=== PATIENT | female | born 1945 | race Caucasian/White ===

== ENCOUNTER 2016-12-07 15:27 | Emergency (ER) | payer OTHER ==
[~2016-12-07] VITALS: Ht 172.7 cm; Wt 84.4 kg
--- NOTE | ~2016-12-07 | EKG ---
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
[2016-12-07] MEDS ORDERED: SIMVASTATIN10 MG PO (15:54)
[2016-12-07] MEDS ORDERED: NEURONTIN600 MG PO (15:55)
[2016-12-07] MEDS ORDERED: PROTONIX40 M1 PO (15:55)
[2016-12-07 15:56] LABS: URINE BILIRUBIN NEGATIVE (Negative); URINE BLOOD 1+ (Negative); URINE COLOR YELLOW; URINE GLUCOSE-RANDOM* NEGATIVE (Negative); URINE KETONES TRACE (Negative); URINE NITRITE NEGATIVE (Negative); URINE PROTEIN (DIPSTICK) TRACE (Negative); URINE UROBILINOGEN 0.2 E.U./dl (0.2-1.0)
[2016-12-07] MEDS ORDERED: ASPIR 8181 MG PO (15:56)
[2016-12-07] MEDS ORDERED: MOBIC7.5 MG PO (15:56)
[2016-12-07] MEDS ORDERED: VITAMIN D1000 UNIT PO (15:57)
[2016-12-07] MEDS ORDERED: NORCO 10-325 T1 EACH PO (15:57)
[2016-12-07] MEDS ORDERED: LATANOPROST2.5 ML OPHTHALMIC (15:58)
[2016-12-07 16:01] LABS: HEMOGLOBIN 14.3 gm/dL (12.0-15.0); MCH 29.3 pg (26.0-34.0); MCHC 33.2 g/dL (28.0-37.0); MCV 88.2 fL (80.0-100.0); PLATELET COUNT 289 thou/uL (150-400); RBC 4.88 mil/uL (4.20-5.00)
[2016-12-07 16:02] LABS: MANUAL DIFF YES
[2016-12-07 16:05] LABS: CASTS None Seen /LPF (None Seen); SQUAMOUS 4-10 Moderate /LPF (0-3); URINE WBC 0-5 Rare /HPF (0-5)
[2016-12-07 16:06] LABS: CRYSTALS None Seen /LPF (None Seen); URINE RBC 0-2 Rare /HPF (0-2)
[2016-12-07 16:13] LABS: ANION GAP 7 mmol/L (7-16); BUN 16 mg/dL (7-18); CALCIUM 8.8 mg/dL (8.5-10.1); CHLORIDE 101 mmol/L (98-107); CO2 27 mmol/L (21-32); CREATININE 1.2 mg/dL (0.6-1.3); GLUCOSE 109 mg/dL (70-99); POTASSIUM 3.7 mmol/L (3.5-5.1); SODIUM 135 mmol/L (136-145)
[2016-12-07 16:20] LABS: ALBUMIN 2.8 g/dL (3.4-5.0); ALKALINE PHOSPHATASE 207 U/L (46-116); DIRECT BILIRUBIN 0.2 mg/dL (<0.1-0.3); SGOT 28 U/L (15-37); SGPT 38 U/L (30-65); TOTAL BILIRUBIN 0.6 mg/dL (<0.1-1.0); TOTAL PROTEIN 7.1 g/dL (6.4-8.2)
[2016-12-07 16:21] LABS: ABSOLUTE NEUTROPHILS 14.6 thou/uL (1.4-8.2); TOTAL CELL COUNT 100
[2016-12-07 16:34] LABS: TROPONIN-I < 0.04 ng/mL (<0.04-0.07)
[2016-12-07] MEDS ORDERED: VIBRAMYCIN 100100 MG PO (18:12)
[2016-12-07 18:33] VITALS: BP 160/67
== END 2016-12-07 18:35 | disposition home or self-care (01) ==
LOC: ER 15:27
PROVIDERS: Emergency Medicine
DX: J18.9 Pneumonia, unspecified organism (principal); D72.829 Elevated white blood cell count, unspecified; Z87.891 Personal history of nicotine dependence